=== PATIENT | female | born 1950 | race African-American/Black ===

== ENCOUNTER 2016-07-02 07:46 | Outpatient (CLI) ==
[2014-03-01 11:24] VITALS: BMI 35.4
--- NOTE | 2016-07-02 10:11 | CT ---
EXAM: CT abdomen pelvis with contrast HISTORY: Right-sided flank pain with history of hysterectomy and prior cholecystectomy and prior ob struction. COMPARISON: Abdominal ultrasound 03/08/2014 TECHNIQUE: Serial axial images of the abdomen pelvis were performed after 75 mL is of Omnipaque IV contrast was administered. These were obtained from the lung bases through the inferior pelvis. FINDINGS: The lung bases are clear. The liver is unremarkable. The gallbladder has been resected. The adrenal glands are unremarkable. The kidneys are unremarkable. The spleen is normal. The pancreas is unremarkable. The stomach i s nondistended. Small bowel in the abdomen pelvis are unremarkable. The colon demonstrates scattered diverticulosis . There are no changes of appendicitis. The urinary bladder is distended. There is moderate ather osclerotic disease. There has been a hysterectomy. There is no free air or free fluid. There are no pathologically enlarged lymph nodes. The osseous structures demonstrate scattered degenerative di sease. IMPRESSION: 1. No obstructive uropathy, renal stone or acute abnormality to account for patient's right-sided f lank pain. 2. Changes consistent with prior cholecystectomy and hysterectomy. 3. Mild atherosclerotic disease and scattered degenerative disease of the spine.
== END 2016-07-02 07:47 | disposition home or self-care (01) ==
LOC: RAD 07:46
PROVIDERS: ATTEND Internal Medicine
DX: R10.9 Unspecified abdominal pain (principal)

== ENCOUNTER 2017-05-10 07:20 | Day surgery (SDC) ==
[2014-03-01 11:24] VITALS: BMI 35.4
[2017-05-10] MEDS ORDERED: LIDOCAINE 1% 20 ML MDV ID STA (07:51)
[2017-05-10] MEDS ORDERED: LIDOCAINE HCL 2% LUER-JET ONE (09:45)
[2017-05-10] MEDS ORDERED: VERSED ONE (09:45)
[2017-05-10] MEDS ORDERED: DIPRIVAN 20 ML VIAL IVP ONE (09:45)
[2017-05-10 14:12] VITALS: BP 163/87; TEMP 97.7
--- NOTE | 2017-05-11 08:05 | OP ---
INDICATIONS FOR PROCEDURE: 67 year old female presents for endoscopy and colonoscopy exam. She has been having intermittent left sided abdominal discomfort. She points to her left upper quadrant and left lower quadrant discomfort. She has occasional bright red blood from rectum and she also has intermittent dysphasia to solids. MEDICATIONS: SEE ANESTHESIA NOTES. PROCEDURE: ENDOSCOPY, UZAIR BIOPSY, ESOPHAGEAL BIOPSY and SLOVENIAN DILATATION COLONOSCOPY, SNARE POLYPECTOMY REPORT: The risks, benefits, alternatives and limitations were discussed in detail with the patient. Informed consent was obtained. After adequate sedation was achieved, the video endoscope was introduced in the posterior pharynx and esophagus under direct vision and easily advanced down to the second portion of the duodenum. I then slowly withdrew in circumferential manner and examined with mucosa quite careful. The duodenal mucosa appeared unremarkable as did the duodenal bulb. I did see the Ampulla of Vater and it appeared normal and bile noted to be flowing from it. The antrum body is relatively unremarkably. Two biopsies from the antrum and one from body obtained for H.Pylori testing. The scope was retroflexed to look at the cardia and fundus which was unremarkable. The scope was anteflexed and withdrawn back through the esophagus, the GE junction there was a stricturing causing mild lumen narrowing. I biopsied this for histological review. The esophagus was otherwise unremarkable. I advised the scope back down the gastric lumen and I placed the guidewire, I withdrew the scope. Over the guidewire I easily advanced a 54 Vietnamese Martiniquais Dilator. The patient tolerated the procedure well with stable vital signs and pulse oximetry throughout. The patient's bed was turned and a digital rectal exam revealed good tone, no masses. The colonoscope was introduced into the rectum and advanced under direct visual guidance to the cecum. The cecum was identified by the appendiceal orifice and IC valve. At that cecum there was a diminutive polyp about 3mm size. This was destroyed using hot snare technique. I then slowly withdrew the scope in circumferential manner and examined the mucosa quite carefully. I looked on the proximal and distal sides of folds and flexures as best as possible. I was able to retroflex the scope in the right colon and left colon to increase visualization. In the ascending colon there is 5 polyps ranging in size from 4mm to 7mm all semi-sessile and I removed these by snare technique. In the proximal transverse there were two polyps about 4 and 6 mm in size and I removed these two by snare technique. The small one was destroyed using the snare. No other abnormalities were noted in the colon area other than diverticulosis. In the right colon there was scattered small mouth diverticuli throughout. In the left colon with a moderate amount of small and large mouth diverticuli scattered throughout. On retroflex view of the anal canal appeared unremarkably. The prep was good. The withdraw time was 11 minutes and 15 seconds. The patient tolerated the procedure well with stable vital signs and pulse oximetry throughout. IMPRESSION: 1. Distal esophageal stricture dilated as above 2. Otherwise normal endoscopy exam including the Ampulla of Vater. 3. 8 Colon polyps removed 4. Pancolonic diverticulosis RECOMMENDATIONS: 1. Reflux precautions 2. Advised her to make sure she cuts and chews her food well 3. High fiber diet 4. Await colon polyp pathology to confirm benign nature 5. Await esophageal biopsy to confirm benign nature 6. Recommend repeat colonoscopy examination again in 3 years or sooner if signs and symptoms would indicate otherwise 7. We will see her back in the office as needed. CC: Dr. Alirio POST
== END 2017-05-10 11:25 | disposition home or self-care (01) ==
LOC: SURG 07:20
PROVIDERS: ATTEND Internal Medicine Gastroenterology
DX: R10.12 Left upper quadrant pain (principal); R10.32 Left lower quadrant pain; K62.5 Hemorrhage of anus and rectum; K22.2 Esophageal obstruction; D12.2 Benign neoplasm of ascending colon; D12.3 Benign neoplasm of transverse colon; K63.5 Polyp of colon; D13.0 Benign neoplasm of esophagus; K57.30 Diverticulosis of large intestine without perforation or abscess without bleeding
CPT/HCPCS: 87339

== ENCOUNTER 2017-06-03 07:57 | Outpatient (CLI) ==
[2014-03-01 11:24] VITALS: BMI 35.4
--- NOTE | 2017-06-03 12:03 | MAMMO ---
EXAM: Bilateral digital screening mammogram (2-D and 3-D) History: Screening Comparison: Bilateral mammogram 02/06/2016 Findings: MLO and CC views of bilateral breasts demonstrate scattered fibroglandular breast parenchy ma. CAD was reviewed by the radiologist. Tomosynthesis was performed. Stable benign bilateral jun st calcifications. There are no dominant masses, no suspicious microcalcifications and no architectu ral distortions Impression: Benign stable mammogram. Recommend followup routine screening mammography in 1 year. BIRADS 2
== END 2017-06-03 07:58 | disposition home or self-care (01) ==
LOC: RAD 07:57
PROVIDERS: ATTEND Internal Medicine
DX: Z12.31 Encounter for screening mammogram for malignant neoplasm of breast (principal)
CPT/HCPCS: 77067

== ENCOUNTER 2018-03-03 10:36 | Outpatient (CLI) ==
[2014-03-01 11:24] VITALS: BMI 35.4
--- NOTE | 2018-03-03 11:29 | DI ---
EXAM: Two views of the chest. History: Short of breath, bronchial asthma Comparison: Chest radiograph 03/01/2014 Findings: Heart size is normal. No focal consolidation. No appreciable pleural fluid and no pneumo thorax. No acute osseous abnormalities. Prominent anterior osteophytes within the thoracic spine. Impression: No acute cardiopulmonary process
== END 2018-03-03 10:37 | disposition home or self-care (01) ==
LOC: RAD 10:36
PROVIDERS: ATTEND Internal Medicine
DX: R06.02 Shortness of breath (principal); J45.909 Unspecified asthma, uncomplicated

== ENCOUNTER 2018-03-08 06:46 | Outpatient (CLI) ==
[2014-03-01 11:24] VITALS: BMI 35.4
--- NOTE | 2018-03-08 09:53 | STECHOSEST ---
Date of Test: 03/08/18 Ordering Physician: DR. JONATHAN RUSSELL Occupation: RETIRED Reason for Exam: SOB, BORDERLINE ISCHEMIA BY STRESS TEST, CHEST PAIN Height: 69" Weight: 240 LBS Current Medications: OMEPRAZOLE, HCTZ, PROVENTIL, PRAVASTATIN, LOSARTAN, FLONASE Resting EKG: SINUS RHYTHM/ NO ACUTE CHANGES Target Heart Rate: 130/153 S-T SEGMENT STAGE MPH/GRADE HEART RATE BPM BLOOD PRESSURE mmhg RHYTHM +/- ELEVATION DEPRESSION SYMPTOMS At Rest 60 BPM 128/60 MMHG SR X NONE 1 1.7/10% 125 BPM 142/70 MMHG SR X NONE 2 2.5/12% 3 3.4/14% 4 4.2/16% 5 5.0/18% Immediately after 144 BPM 120/78 MMHG SR X SHORT OF BREATH Minutes Post Exercise 5:00 65 BPM 118/68 MMHG SR X NONE Minutes Post Exercise Total Time: 4:19 Maximum Heart Rate Reached: 144 BPM Reason for Termination: SHORT OF BREATH 97% Oxygen saturation on room air with exercises Mets 7.[address]-T WAVE CHANGES FOR ISCHEMIA 2. NO CHEST PAIN OR DISCOMFORT 3. BLOOD PRESSURE RESPONSE ADEQUATE 4. NO ARRHYTHMIAS NORMAL LEFT VENTRICULAR CONTRACTILITY--RESTING AND POST EXERCISE SESTAMIBI TO FOLLOW MTDD
--- NOTE | 2018-03-08 11:48 | NM ---
Cardiac Stress Test HISTORY: Shortness of breath. COMPARISON: None of this type. TECHNIQUE: Resting: The patient was injected with 3.5 mCi of thallium 201 chloride intravenously after which a "resting" SPECT study of the heart was performed. Stress: The patient was stressed using a Joseph protocol and at the appropriate time injected with 24 .3 mCi of 99m technetium Sestamibi (Cardiolite) after which a "stress" SPECT study of the heart was p erformed. Gated images of the heart were also obtained to assess wall motion and calculate ejection fraction. For details of the stress protocol employed, reference is made to the separate report of t performing physician. FINDINGS: The stress perfusion images demonstrate a generally uniform distribution of activity in th e left ventricular myocardium. Note that the resting images are influenced by underlying bowel activ ity. The resting perfusion images demonstrate no evidence of significant redistribution/ischemia. The left ventricular ejection fraction (LVEF) is 60 %. The left ventricular wall motion is within normal limits. IMPRESSION: 1. Left ventricular myocardial perfusion is within normal limits. 2. The left ventricular ejection fraction (LVEF) is 60 %. 3. The left ventricular wall motion is within normal limits.
--- NOTE | 2018-03-10 10:13 | ECHOSTRESS ---
Date of Exam: 03/08/18 Ordering Physician: DR. JONATHAN RUSSELL Reason for Echo: SOB, STRESS TEST--BORDERLINE ISCHEMIA M-Mode Normal Adult Results LV Dimensions Normal Adult Results AoV Opening excursions >1.6 LVEDD-base- 3.5-5.8 Ao root dimensions 2.0-3.7 LVESD-base- 3.1-4.6 L. Atrium dimensions 1.9-3.8 Post. Wall thickness 0.8-1.1 IV septum (thickness) 0.7-1.2 Post. Wall excursion 0.72-1.3 Septal motion Systolic motion R. Ventricular cavity 1.5-2.0 LVEF 60% Paradoxical septal wall motion 2-D: NORMAL LEFT VENTRICULAR CONTRACTILITY--RESTING AND POST EXERCISE M-MODE: MV: AV: TV: PV: CHAMBER SIZE: WALL MOTION: NORMAL LEFT VENTRICULAR CONTRACTILITY--RESTING AND POST EXERCISE PERICARDIUM: INTERPRETATION: 1. NORMAL LEFT VENTRICULAR CONTRACTILITY--RESTING AND POST EXERCISE MTDD
== END 2018-03-08 06:47 | disposition home or self-care (01) ==
LOC: CAR 06:46
PROVIDERS: ATTEND Internal Medicine
DX: R06.02 Shortness of breath (principal)

== ENCOUNTER 2021-10-06 05:49 | Observation (INO) ==
--- NOTE | 2021-10-06 06:34 | ED.PDOC ---
General <CHAS CHAVARRIA MD - Last Filed: 10/06/21 06:56> ED Provider: Dr. CHAS CHAVARRIA MD Chief Complaint: Chest Pain Stated Complaint: Patient presents with intermittent episodes of mid chest pain. The episodes are described as a pressure type sensation and sometimes they feel like a tingling type sensation. They may last minutes up to hours. She denies associated dyspnea, palpitations, syncope, nausea, lightheadedness or diaphoresis. She has recently noted exercise intolerance and has had some peripheral edema. Time Seen by Provider: 10/06/21 06:34 Mode of Arrival: Walk-In Information Source: Patient Primary Care Provider: JONATHAN AMEZQUITA Nursing and Triage Documentation Reviewed and Agree: Yes Does patient meet sepsis criteria?: No System Inflammatory Response Syndrome: Not Applicable Sepsis Protocol: For patient's 13 years and over: Temp is 96.8 and below OR 101 and greater Pulse >90 BPM Resp >20/minute Acutely Altered Mental Status Are patient's symptoms suggestive of a new infection, such as: -Pneumonia -Skin, Soft Tissue -Endocarditis -UTI -Bone, Joint Infection -Implantable Device -Acute Abdominal Infection -Wound Infection -Meningitis -Blood Stream Catheter Infection -Unknown Cardiovascular Complaint Exam <CHAS CHAVARRIA MD - Last Filed: 10/06/21 06:56> Chest Pain Complaint/Exam Onset: Sudden Duration: episodes for a few months Symptoms Are: Resolved Timing: Intermittent Length of Chest Pain Episodes: minutes up to a few hours Initial Severity: Mild Current Severity: Moderate Location: Reports Midsternal Pain Radiates: Reports None Character: Reports Pressure Aggravating: Reports Exertion Alleviating: Reports None Associated Signs and Symptoms: Reports Short of air; Denies Diaphoresis, Nausea, Vomiting, Fever, Palpitations, Cough, Hemoptysis, Back pain, Abdominal pain, Dizziness, Calf pain or Calf swelling Related History: Reports Similar episode Related Surgical History: Reports None History of Healthcare-Acquired Pneumonia: Reports No AMI/ACS Risk Factors: Reports Obesity, Hypertension and Dyslipidemia Pulmonary Embolism Risk Factors: Reports None Prior Care for this Complaint: No Recent Stress Test: No Recent Echo/LV Function: No JVD Present: No Subcutaneous Emphysema Present: No Diminshed Breath Sounds: No Reproducible Chest Wall Pain: No Bilateral Pulses Present: Yes Unequal Pulses Noted: No Review of Systems <CHAS CHAVARRIA MD - Last Filed: 10/06/21 06:56> Review Of Systems Constitutional: Reports No symptoms Eyes: Reports No symptoms Ears, Nose, Mouth, Throat: Reports No symptoms Respiratory: Reports Short of air Cardiac: Reports Chest pain and Edema GI: Reports No symptoms : Reports No symptoms Musculoskeletal: Reports No symptoms Skin: Reports No symptoms Neurological: Reports No symptoms Endocrine: Reports No symptoms Hematologic/Lymphatic: Reports No symptoms All Other Systems: Reviewed and Negative PFSH <CHAS CHAVARRIA MD - Last Filed: 10/06/21 06:56> Medical History Hypertension Menopause present Social History Smoking and tobacco status: Never smoker Surgical History History of gastrointestinal surgery Status post hysterectomy Female Reproductive History Menstrual Hx Hysterectomy: No Hx Tubal Ligation: No Physical Exam <CHAS CHAVARRIA MD - Last Filed: 10/06/21 06:56> Physical Exam Appearance: Reports Well-appearing, No pain distress, Well-nourished, Obese and Other (Anxious) Ill-appearing: None Pain Distress: None Eyes: Reports Not Examined ENT: Reports Not Examined Neck: Supple Respiratory: Reports Airway patent, Breath sounds clear, Breath sounds equal and Other (Chest wall nontender.) Cardiovascular: Reports RRR, No rub and No murmur GI/: Reports Soft, Nontender, No masses and Bowel sounds normal Musculoskeletal: Reports Normal strength, ROM intact and No edema Skin: Reports Warm, Dry and Normal color Neurological: Reports Sensation intact, Motor intact, Alert and Oriented Psychiatric: Reports Affect appropriate, Mood appropriate and Anxious Interpretation <CHAS CHAVARRIA MD - Last Filed: 10/06/21 06:56> EKG Interpretation Time of EKG #1: 06:06 Rate: Normal (66bpm) Rhythm: Sinus Ectopy: None [place]: NL ST Segment: Normal Interpretation: normal sinus rhythm;normal EKG <DIXON PLUMMER MD - Last Filed: 10/06/21 09:48> Radiology Interpretation Radiology Interpretation By: Radiologist Radiology Results: No acute changes Exam Interpreted: CXR <DIXON PLUMMER MD - Last Filed: 10/06/21 09:48> Critical Care Note Total Critical Care Time (mins): 0 Course <CHAS CHAVARRIA MD - Last Filed: 10/06/21 06:56> Course Hematology/Chemistry: 10/06/21 06:30 10/06/21 06:30 Orders, Labs, Meds: Lab Review 10/06/21 10/06/21 10/06/21 06:30 06:30 07:35 WBC 8.07 RBC 4.01 L Hgb 11.2 L Hct 31.4 L MCV 78.3 L MCH 27.9 MCHC 35.7 H RDW Coeff of Michael 13.9 Plt Count 315 Immature Gran % (Auto) 0.2 Neut % (Auto) 60.7 Lymph % (Auto) 28.1 [place] % (Auto) 7.4 Eos % (Auto) 3.1 Baso % (Auto) 0.5 Neut # (Auto) 4.9 Lymph # (Auto) 2.3 [place] # (Auto) 0.6 Eos # (Auto) 0.3 Baso # (Auto) 0.0 Immature Gran # (Auto) 0.0 Sodium 139.1 Potassium 3.53 Chloride 101.4 Carbon Dioxide 30.5 H Anion Gap 10.73 BUN 14.2 Creatinine 0.75 Estimated GFR (MDRD) 92.00 BUN/Creatinine Ratio 18.93 Glucose 123.1 H Calcium 9.28 Total Bilirubin 0.26 AST 24.5 ALT 26.4 Alkaline Phosphatase 95.2 Total Creatine Kinase 75.7 Troponin I < 0.012 NT-Pro-B Natriuret Pep Total Protein 7.36 Albumin 3.99 Globulin 3.37 Albumin/Globulin Ratio 1.18 SARS CoV-2 RNA Rapid PAT Negative 10/06/21 09:10 WBC RBC Hgb Hct MCV MCH MCHC RDW Coeff of Michael Plt Count Immature Gran % (Auto) Neut % (Auto) Lymph % (Auto) [place] % (Auto) Eos % (Auto) Baso % (Auto) Neut # (Auto) Lymph # (Auto) [place] # (Auto) Eos # (Auto) Baso # (Auto) Immature Gran # (Auto) Sodium Potassium Chloride Carbon Dioxide Anion Gap BUN Creatinine Estimated GFR (MDRD) BUN/Creatinine Ratio Glucose Calcium Total Bilirubin AST ALT Alkaline Phosphatase Total Creatine Kinase Troponin I < 0.012 NT-Pro-B Natriuret Pep 77.400 Total Protein Albumin Globulin Albumin/Globulin Ratio SARS CoV-2 RNA Rapid PAT Orders Category Date Time Status EKG-(ED ONLY) Stat CARDIO 10/06/21 06:26 Completed Saline Lock [ED IV/MEDIPORT/POWERPORT] .ONCE EMERGENCY 10/06/21 06:58 Active BNP [NT-PROBNP] Stat LAB 10/06/21 09:10 Completed CBC W/ AUTO DIFF Stat LAB 10/06/21 06:30 Completed COMPREHENSIVE METABOLIC PANEL Stat LAB 10/06/21 06:30 Completed CREATINE KINASE Stat LAB 10/06/21 06:30 Completed SARS COV-2 RNA RAPID PAT Stat LAB 10/06/21 07:35 Completed TROPONIN I Stat LAB 10/06/21 06:30 Completed TROPONIN I Stat LAB 10/06/21 09:10 Completed 0.9 % Sodium Chloride [Saline Flush] MEDS 10/06/21 06:58 Active 1 syr IVF PRN PRN Aspirin [Aspirin Chewable] MEDS 10/06/21 07:14 Discontinued 324 mg PO ONCE STA CHEST, 1V AP ONLY Stat RADS 10/06/21 06:26 Completed Medications Generic Name Dose Route Start Last Admin Trade Name Freq PRN Reason Stop Dose Admin Sodium Chloride 1 syr 10/06/21 06:58 0.9% Sodium Chloride 10 Ml Disp.Syrin IVF PRN PRN To flush IV Discontinued Medications Generic Name Dose Route Start Last Admin Trade Name Freq PRN Reason Stop Dose Admin Aspirin 324 mg 10/06/21 07:14 10/06/21 07:22 Aspirin 81 Mg Tab.Chew PO 10/06/21 07:15 324 mg ONCE STA Administration Vital Signs: Temp Pulse Resp BP Pulse Ox 10/06/21 05:53 97.7 F 68 20 148/90 H 98 <DIXON PLUMMER MD - Last Filed: 10/06/21 09:48> Course Orders, Labs, Meds: Lab Review 10/06/21 10/06/21 10/06/21 06:30 06:30 07:35 WBC 8.07 RBC 4.01 L Hgb 11.2 L Hct 31.4 L MCV 78.3 L MCH 27.9 MCHC 35.7 H RDW Coeff of Michael 13.9 Plt Count 315 Immature Gran % (Auto) 0.2 Neut % (Auto) 60.7 Lymph % (Auto) 28.1 [place] % (Auto) 7.4 Eos % (Auto) 3.1 Baso % (Auto) 0.5 Neut # (Auto) 4.9 Lymph # (Auto) 2.3 [place] # (Auto) 0.6 Eos # (Auto) 0.3 Baso # (Auto) 0.0 Immature Gran # (Auto) 0.0 Sodium 139.1 Potassium 3.53 Chloride 101.4 Carbon Dioxide 30.5 H Anion Gap 10.73 BUN 14.2 Creatinine 0.75 Estimated GFR (MDRD) 92.00 BUN/Creatinine Ratio 18.93 Glucose 123.1 H Calcium 9.28 Total Bilirubin 0.26 AST 24.5 ALT 26.4 Alkaline Phosphatase 95.2 Total Creatine Kinase 75.7 Troponin I < 0.012 NT-Pro-B Natriuret Pep Total Protein 7.36 Albumin 3.99 Globulin 3.37 Albumin/Globulin Ratio 1.18 SARS CoV-2 RNA Rapid PAT Negative 10/06/21 09:10 WBC RBC Hgb Hct MCV MCH MCHC RDW Coeff of Michael Plt Count Immature Gran % (Auto) Neut % (Auto) Lymph % (Auto) [place] % (Auto) Eos % (Auto) Baso % (Auto) Neut # (Auto) Lymph # (Auto) [place] # (Auto) Eos # (Auto) Baso # (Auto) Immature Gran # (Auto) Sodium Potassium Chloride Carbon Dioxide Anion Gap BUN Creatinine Estimated GFR (MDRD) BUN/Creatinine Ratio Glucose Calcium Total Bilirubin AST ALT Alkaline Phosphatase Total Creatine Kinase Troponin I < 0.012 NT-Pro-B Natriuret Pep 77.400 Total Protein Albumin Globulin Albumin/Globulin Ratio SARS CoV-2 RNA Rapid PAT Orders Category Date Time Status EKG-(ED ONLY) Stat CARDIO 10/06/21 06:26 Completed Saline Lock [ED IV/MEDIPORT/POWERPORT] .ONCE EMERGENCY 10/06/21 06:58 Active BNP [NT-PROBNP] Stat LAB 10/06/21 09:10 Completed CBC W/ AUTO DIFF Stat LAB 10/06/21 06:30 Completed COMPREHENSIVE METABOLIC PANEL Stat LAB 10/06/21 06:30 Completed CREATINE KINASE Stat LAB 10/06/21 06:30 Completed SARS COV-2 RNA RAPID PAT Stat LAB 10/06/21 07:35 Completed TROPONIN I Stat LAB 10/06/21 06:30 Completed TROPONIN I Stat LAB 10/06/21 09:10 Completed 0.9 % Sodium Chloride [Saline Flush] MEDS 10/06/21 06:58 Active 1 syr IVF PRN PRN Aspirin [Aspirin Chewable] MEDS 10/06/21 07:14 Discontinued 324 mg PO ONCE STA CHEST, 1V AP ONLY Stat RADS 10/06/21 06:26 Completed Medications Generic Name Dose Route Start Last Admin Trade Name Freq PRN Reason Stop Dose Admin Sodium Chloride 1 syr 10/06/21 06:58 0.9% Sodium Chloride 10 Ml Disp.Syrin IVF PRN PRN To flush IV Discontinued Medications Generic Name Dose Route Start Last Admin Trade Name Freq PRN Reason Stop Dose Admin Aspirin 324 mg 10/06/21 07:14 10/06/21 07:22 Aspirin 81 Mg Tab.Chew PO 10/06/21 07:15 324 mg ONCE STA Administration Vital Signs: Temp Pulse Resp BP Pulse Ox 10/06/21 05:53 97.7 F 68 20 148/90 H 98 ADRIANA Risk Score <CHAS CHAVARRIA MD - Last Filed: 10/06/21 06:56> ADRIANA Risk Score: Risk Score Odds of by 30D 0 0.1 (0.1-0.2) 1 0.3 (0.2-0.3) 2 0.4 (0.3-0.5) 3 0.7 (0.6-0.9) 4 1.2 (1.0-1.5) 5 2.2 (1.9-2.6) 6 3.0 (2.5-3.6) 7 4.8 (3.8-6.1) Discharge Plan Discharge Patient Disposition: ADMITTED INPATIENT Discharge Problem: Chest pain Prescriptions: No Action hydrochlorothiazide 25 MG tablet 25 mg PO DAILY omeprazole 20 MG capsule,delayed release(DR/EC) 20 mg PO DAILY Qty: 60 pravastatin 20 mg Tablet 20 mg PO BEDTIME losartan 100 mg Tablet 100 mg PO DAILY loratadine [Claritin] 10 mg Tablet 10 mg PO DAILY PRN (Reason: ALLERGIES) diphenhydramine HCl [Unisom SleepGels] 50 mg Capsule 50 mg PO BEDTIME PRN (Reason: Sleep) lorazepam 1 mg tablet 0.5 - 1 mg PO BEDTIME PRN (Reason: Sleep) Label Comments: TAKE 1/2 TO 1 TABLET BY MOUTH EVERY NIGHT AT BEDTIME melatonin 10 mg Tablet 10 mg PO BEDTIME PRN (Reason: Sleep) Did you review [place] CURTAIN FITTER?: No ED Provider: PLUMMER,DIXON Condition: Stable <CHAS CHAVARRIA MD - Last Filed: 10/06/21 06:56> Physician Progress Note: [] <DIXON PLUMMER MD - Last Filed: 10/06/21 09:48> Physician Progress Note: []admit d/w Dr Amezquita
[2021-10-06 06:37] LABS: BASOPHILS % (AUTO) 0.5 % (0.0-3.0); EOSINOPHILS # (AUTO) 0.3 K/ul (0.0-0.7); EOSINOPHILS % (AUTO) 3.1 % (0.0-7.0); HEMATOCRIT 31.4 % (37.0-47.0); HEMOGLOBIN 11.2 g/dl (12.0-16.0); IMMATURE GRANULOCYTE % (AUTO) 0.2 % (0.0-5.0); LYMPHOCYTES # (AUTO) 2.3 K/uL (0.60-3.4); LYMPHOCYTES % (AUTO) 28.1 (10.0-50.0); MEAN CORPUSCULAR HEMOGLOBIN 27.9 pg (27.0-31.0); MEAN CORPUSCULAR HGB CONC 35.7 (31.8-35.4); MEAN CORPUSCULAR VOLUME 78.3 fl (81.0-99.0); MONOCYTES # (AUTO) 0.6 K/uL (0.4-2.0); MONOCYTES % (AUTO) 7.4 (0-10); NEUTROPHILS # (AUTO) 4.9 K/ul (2.0-6.9); NEUTROPHILS % (AUTO) 60.7 % (42.2-75.2); PLATELET COUNT 315 10^3/uL (140-440); RDW COEFFICIENT OF VARIATION 13.9 % (11.6-14.8); RED BLOOD COUNT 4.01 10^6/ul (4.20-5.40); WHITE BLOOD COUNT 8.07 K/ul (4.6-10.2)
[2021-10-06 06:48] LABS: ALANINE AMINOTRANSFERASE 26.4 U/L (0-35); ALBUMIN 3.99 g/dL (3.5-5.0); ALKALINE PHOSPHATASE 95.2 U/L (53-141); ASPARTATE AMINO TRANSFERASE 24.5 U/L (14-36); BILIRUBIN,TOTAL 0.26 mg/dL (0.2-1.3); BLOOD UREA NITROGEN 14.2 mg/dL (7-17); CALCIUM 9.28 mg/dL (8.4-10.2); CARBON DIOXIDE 30.5 mmol/L (22-30.0); CHLORIDE 101.4 mmol/L (98-107); CREATINE KINASE 75.7 U/L (30-135); CREATININE 0.75 mg/dL (0.60-1.30); GLUCOSE 123.1 mg/dL (74-106); POTASSIUM 3.53 mmol/L (3.5-5.1); SODIUM 139.1 mmol/L (134.5-145); TOTAL PROTEIN 7.36 g/dL (6.3-8.2)
[2021-10-06 07:04] LABS: TROPONIN I < 0.012 ng/ml (0.0000-0.120)
[2021-10-06] MEDS ORDERED: ASPIRIN CHEWABLE PO STA (07:14)
--- NOTE | 2021-10-06 07:27 | DI ---
EXAM: Single, AP chest. HISTORY: Chest pain COMPARISON: 06/01/2021. TECHNIQUE: Single, portable AP view(s) of the chest. FINDINGS: Lungs: The lung volumes are normal. The lungs are clear without consolidation or effusion. There is no pneumothorax. Cardiovascular: The heart is normal. The pulmonary vasculature is within normal limits. The aorta is unremarkable. Olga/Mediastinum: Normal. Osseous structures: Normal for age. IMPRESSION: Negative chest
[2021-10-06 09:44] LABS: TROPONIN I < 0.012 ng/ml (0.0000-0.120)
[2021-10-06] MEDS ORDERED: TYLENOL PO PRN (09:48)
[2021-10-06] MEDS ORDERED: CLARITIN PO PRN (09:50)
[2021-10-06] MEDS ORDERED: BENADRYL PO PRN (09:50)
[2021-10-06] MEDS ORDERED: NON-FORMULARY MEDICATION (Melatonin 10 mg Tablet) PO PRN (09:50)
[2021-10-06] MEDS ORDERED: ATROPINE SULFATE PFS IVP PRN (09:53)
[2021-10-06] MEDS ORDERED: NITROSTAT SL PRN (09:53)
[2021-10-06 11:24] VITALS: BMI 36.1
[2021-10-06] MEDS ORDERED: ULTRAM PO PRN (11:38)
[2021-10-06 13:43] LABS: BILIRUBIN,URINE Negative (NEGATIVE); CLARITY,URINE Clear (CLEAR); COLOR,URINE Yellow (YELLOW); GLUCOSE, URINE (UA) Negative (NEGATIVE); KETONES,URINE Negative (NEGATIVE); LEUKOCYTE ESTERASE ,URINE Negative (NEGATIVE); NITRITE,URINE Negative (NEGATIVE); PH,URINE 6.5 (5-9); PROTEIN,URINE Negative (NEGATIVE); URINE, BLOOD Negative (NEGATIVE); UROBILINOGEN,URINE 0.2 (0.2)
[2021-10-06] MEDS: SODIUM CHLORIDE 1,000 ML IV SCH (13:58)
[2021-10-06] MEDS: PROTONIX PO SCH ×2 (13:58→17:47)
[2021-10-06 17:14] LABS: CREATINE KINASE 63.8 U/L (30-135)
[2021-10-06 17:28] LABS: TROPONIN I < 0.012 ng/ml (0.0000-0.120)
[2021-10-06] MEDS: COZAAR PO SCH (17:49)
[2021-10-06] MEDS: ATIVAN PO PRN (20:54)
[2021-10-06] MEDS ORDERED: PRAVACHOL PO SCH (21:00)
[2021-10-07] MEDS: SODIUM CHLORIDE 1,000 ML IV SCH ×2 (02:10→13:16)
[2021-10-07 04:36] LABS: BASOPHILS # (AUTO) 0.1 K/uL (0-0.2); BASOPHILS % (AUTO) 0.7 % (0.0-3.0); EOSINOPHILS # (AUTO) 0.3 K/ul (0.0-0.7); EOSINOPHILS % (AUTO) 3.7 % (0.0-7.0); HEMATOCRIT 30.2 % (37.0-47.0); HEMOGLOBIN 10.4 g/dl (12.0-16.0); IMMATURE GRANULOCYTE % (AUTO) 0.2 % (0.0-5.0); LYMPHOCYTES # (AUTO) 3.3 K/uL (0.60-3.4); LYMPHOCYTES % (AUTO) 35.9 (10.0-50.0); MEAN CORPUSCULAR HEMOGLOBIN 27.6 pg (27.0-31.0); MEAN CORPUSCULAR HGB CONC 34.4 (31.8-35.4); MEAN CORPUSCULAR VOLUME 80.1 fl (81.0-99.0); MONOCYTES # (AUTO) 0.8 K/uL (0.4-2.0); MONOCYTES % (AUTO) 8.8 (0-10); NEUTROPHILS # (AUTO) 4.6 K/ul (2.0-6.9); NEUTROPHILS % (AUTO) 50.7 % (42.2-75.2); PLATELET COUNT 327 10^3/uL (140-440); RDW COEFFICIENT OF VARIATION 14.1 % (11.6-14.8); RED BLOOD COUNT 3.77 10^6/ul (4.20-5.40); WHITE BLOOD COUNT 9.07 K/ul (4.6-10.2)
[2021-10-07 05:40] LABS: ALBUMIN 3.57 g/dL (3.5-5.0); ALKALINE PHOSPHATASE 89.8 U/L (53-141); ASPARTATE AMINO TRANSFERASE 33.9 U/L (14-36); BILIRUBIN,TOTAL 0.16 mg/dL (0.2-1.3); BLOOD UREA NITROGEN 16.6 mg/dL (7-17); CALCIUM 8.98 mg/dL (8.4-10.2); CARBON DIOXIDE 29.7 mmol/L (22-30.0); CHLORIDE 102.1 mmol/L (98-107); CREATININE 0.86 mg/dL (0.60-1.30); GLUCOSE 121.5 mg/dL (74-106); POTASSIUM 3.98 mmol/L (3.5-5.1); SODIUM 137.6 mmol/L (134.5-145); TOTAL PROTEIN 6.66 g/dL (6.3-8.2)
[2021-10-07] MEDS: PROTONIX PO SCH ×2 (05:48→17:02)
[2021-10-07] MEDS ORDERED: PRILOSEC PO SCH (06:30)
[2021-10-07] MEDS: HYDROCHLOROTHIAZIDE PO SCH (08:38)
[2021-10-07] MEDS ORDERED: PRAVACHOL PO SCH ×2 (09:00→17:00)
[2021-10-07] MEDS ORDERED: COZAAR PO SCH (09:00)
[2021-10-07] MEDS: PRAVACHOL PO SCH (09:43)
[2021-10-07] MEDS: COZAAR PO SCH (17:01)
[2021-10-07] MEDS: ATIVAN PO PRN (20:54)
[2021-10-08 05:11] VITALS: BP 116/68; TEMP 97
[2021-10-08] MEDS: PROTONIX PO SCH (05:45)
[2021-10-08 05:56] LABS: BASOPHILS # (AUTO) 0.1 K/uL (0-0.2); BASOPHILS % (AUTO) 0.6 % (0.0-3.0); EOSINOPHILS # (AUTO) 0.3 K/ul (0.0-0.7); EOSINOPHILS % (AUTO) 3.8 % (0.0-7.0); HEMATOCRIT 31.9 % (37.0-47.0); IMMATURE GRANULOCYTE % (AUTO) 0.4 % (0.0-5.0); LYMPHOCYTES # (AUTO) 2.6 K/uL (0.60-3.4); MEAN CORPUSCULAR HEMOGLOBIN 27.5 pg (27.0-31.0); MEAN CORPUSCULAR HGB CONC 34.5 (31.8-35.4); MEAN CORPUSCULAR VOLUME 79.8 fl (81.0-99.0); MONOCYTES # (AUTO) 0.7 K/uL (0.4-2.0); MONOCYTES % (AUTO) 8.4 (0-10); NEUTROPHILS # (AUTO) 4.6 K/ul (2.0-6.9); NEUTROPHILS % (AUTO) 55.8 % (42.2-75.2); PLATELET COUNT 316 10^3/uL (140-440); RDW COEFFICIENT OF VARIATION 13.8 % (11.6-14.8); WHITE BLOOD COUNT 8.23 K/ul (4.6-10.2)
[2021-10-08 06:10] LABS: ALANINE AMINOTRANSFERASE 21.4 U/L (0-35); ALBUMIN 3.87 g/dL (3.5-5.0); ALKALINE PHOSPHATASE 82.3 U/L (53-141); ASPARTATE AMINO TRANSFERASE 20.8 U/L (14-36); BILIRUBIN,TOTAL 0.28 mg/dL (0.2-1.3); BLOOD UREA NITROGEN 14.6 mg/dL (7-17); CALCIUM 9.31 mg/dL (8.4-10.2); CARBON DIOXIDE 32.5 mmol/L (22-30.0); CHLORIDE 100.8 mmol/L (98-107); CREATININE 0.84 mg/dL (0.60-1.30); GLUCOSE 117.8 mg/dL (74-106); SODIUM 138.9 mmol/L (134.5-145); TOTAL PROTEIN 7.13 g/dL (6.3-8.2)
[2021-10-08 06:14] LABS: POTASSIUM 3.79 mmol/L (3.5-5.1)
--- NOTE | 2021-10-08 08:18 | ECHO2D ---
Date of Exam: 10/07/2021 Ordering Physician: DR. JONATHAN RUSSELL Room #: [id number] Reason for Echo: CHEST PAIN, HTN, OBESITY, DYSLIPIDEMIA M-Mode Normal Adult Results LV Dimensions Normal Adult Results AoV Opening excursions >1.6 >1.6 LVEDD-base- 3.5-5.8 4.5 Ao root dimensions 2.0-3.7 3.3 LVESD-base- 3.1-4.6 L. Atrium dimensions 1.9-3.8 4.8 Post. Wall thickness 0.8-1.1 1.1 IV septum (thickness) 0.7-1.2 1.2 Post. Wall excursion 0.72-1.3 NORMAL Septal motion NORMAL Systolic motion R. Ventricular cavity 1.5-2.0 NORMAL LVEF 60% 65% Paradoxical septal wall motion NORMAL 2-D : 2-D M Mode Echocardiogram was performed using apical four chamber and left parasternal long and short axis views. Mitral, tricuspid and aortic valves appear to be normal. Contractility of the left ventricle seems to be normal, so is the cavity size. ENLARGED LEFT ATRIAL CAVITY SIZE. Aortic root appears to be normal. There is no pericardial effusion. There is no thrombus noted in the left ventricle or left atrial cavity. M-MODE: MV: NORMAL AV: NORMAL TV: NORMAL PV: CHAMBER SIZE: ENLARGED LEFT ATRIAL CAVITY WALL MOTION: NORMAL PERICARDIUM: NORMAL INTERPRETATION: 1. LEFT VENTRICLE HYPERTROPHY WITH ENLARGED LEFT ATRIAL CAVITY 2. NORMAL VALVES 3. NORMAL LEFT VENTRICLE CONTRACTILITY MTDD
--- NOTE | 2021-10-08 08:47 | STRESSMOD ---
Date of Test: 10/07/2021 Ordering Physician: DR. JONATHAN RUSSELL Occupation:RETIRED Reason for Exam: CHEST PAIN Smoking History: NONE Height: 69" Weight: 245 LBS Current Medications: PRAVASTATIN, LOSARTAN, TRAMADOL, LORAZEPAM, HCTZ Resting EKG: SINUS RHYTHM/ NO ACUTE CHANGES Target Heart Rate: 126/149 S-T SEGMENT STAGE MPH/GRADE HEART RATE BPM BLOOD PRESSURE mmhg RHYTHM +/- ELEVATION DEPRESSION SYMPTOMS At Rest 65 BPM 140/70 MMHG SR X NONE 1 1.7/0% 112 BPM 150/70 MMHG SR X NONE 2 1.7/5% 3 1.7/10% 4 2.5/12% 5 3.4/14% Immediately After 127 BPM 190/66 MMHG SR X SHORT OF AIR Minutes Post Exercise 4" 75 BPM SR X NONE Minutes Post Exercise 6" 72 BPM 138/80 MMHG SR X NONE DURATION OF EXERCISE: 5.23 MAXIMUM HEART RATE REACHED: 127 BPM REASON FOR TERMINATION: SHORT OF AIR 93% OXYGEN SATURATION WITH EXERCISE ON ROOM AIR METS 4.0 INTERPRETATION: 1. TEST NEGATIVE FOR ISCHEMIC ST-T WAVE CHANGES 2. NO CHEST PAIN OR DISCOMFORT 3. NO ARRHYTHMIAS 4. BLOOD PRESSURE RESPONSE: SYSTOLIC HYPERTENSION WITH EXERCISE NORMAL LEFT VENTRICLE CONTRACTILITY--RESTING AND POST EXERCISE MTDD
--- NOTE | 2021-10-08 08:49 | ECHOSTRESS ---
Date of Exam: 10/07/2021 Ordering Physician: DR. JONATHAN RUSSELL Reason for Echo: CHEST PAIN, STRESS TEST--NO ISCHEMIA M-Mode Normal Adult Results LV Dimensions Normal Adult Results AoV Opening excursions >1.6 LVEDD-base- 3.5-5.8 Ao root dimensions 2.0-3.7 LVESD-base- 3.1-4.6 L. Atrium dimensions 1.9-3.8 Post. Wall thickness 0.8-1.1 IV septum (thickness) 0.7-1.2 Post. Wall excursion 0.72-1.3 Septal motion Systolic motion R. Ventricular cavity 1.5-2.0 LVEF 60% Paradoxical septal wall motion 2-D: NORMAL LEFT VENTRICLE CONTRACTILITY--RESTING AND POST EXERCISE M-MODE: MV: AV: TV: PV: CHAMBER SIZE: WALL MOTION: NORMAL LEFT VENTRICLE CONTRACTILITY--RESTING AND POST EXERCISE PERICARDIUM: INTERPRETATION: 1. NORMAL LEFT VENTRICLE CONTRACTILITY--RESTING AND POST EXERCISE MTDD
[2021-10-08 08:57] LABS: RETICULOCYTE % 1.62 %; RETICULOCYTE HEMOGLOBIN 32.8
[2021-10-08] MEDS: HYDROCHLOROTHIAZIDE PO SCH (09:03)
[2021-10-08] MEDS: PRAVACHOL PO SCH (09:03)
[2021-10-08 09:07] LABS: IRON 53.1 ug/dL (37-170)
--- NOTE | 2021-10-08 09:24 | PCM.PROG ---
Attending Provider: ATTENDING PROVIDER: Dr. JONATHAN AMEZQUITA This patient is seen with Radha Giraldo, Nurse Practitioner. DATE OF SERVICE: 10/08/21 SUBJECTIVE: This 71 year old AA/BLACK F was hospitalized 10/06/21. Cardiac workup was negative. Still reports that she has some substernal pains at times feels that she can't swallow all the way down. She has a history of esophageal dilatation with Dr. Bedoya, was a few years ago we will refer her back. REVIEW OF SYSTEMS: CONSTITUTIONAL: No night sweats. No fatigue, malaise, lethargy. No fever or chills. HEENT: Eyes: No visual changes. No eye pain. No eye discharge. ENT: No runny nose. No epistaxis. No sinus pain. No odynophagia. No congestion. RESPIRATORY: No cough, no congestion. No hemoptysis. No shortness of breath. CARDIOVASCULAR: No angina symptoms. No CHF symptoms. No atypical chest pain for CAD. No palpitations. No orthopnea.. GASTROINTESTINAL: No abdominal pain. No nausea or vomiting. No diarrhea or constipation. No hematemesis. No hematochezia. Epigastric pain. GENITOURINARY: No urgency. No frequency. No dysuria. No hematuria. No obstructive symptoms. No discharge. No pain. No significant abnormal bleeding. MUSCULOSKELETAL: No musculoskeletal pain; no joint swelling. NEUROLOGICAL: Awake, alert, oriented to time, place and person. No headache. No neck pain. No syncope. No seizures. No dizziness. PSYCHIATRIC: Not anxious. No depression. No suicidal thoughts. No homicidal thoughts. Insomnia SKIN: No rash. No lesions. No wounds. ENDOCRINE: No unexplained weight loss. No weight gain. HEMATOLOGIC/LYMPHATIC: No anemia. No purpura. No petechiae. No prolonged or excessive bleeding. No palpable lymph nodes. PHYSICAL EXAMINATION: GENERAL: The patient is awake, alert and oriented, sitting in bed in no distress. VITAL SIGNS: Temperature 97.0 F, Pulse 58, Respiratory Rate 16, BP 116/68, Pulse Ox 99% HEENT: Head normocephalic, atraumatic. Eyes: Extraocular muscles are intact. Pupils are equal, round and reactive to light and accommodation. Ears: No lesions. Nose appeared normal. Throat: No exudate or erythema. NECK: Supple. No JVD, no carotid bruit. No lymphadenopathy or thyromegaly. LUNGS: Clear to auscultation. Percussion note normal. Chest symmetrical. HEART: S1, S2, no S3. No murmurs. No cyanosis or clubbing. No ascites. Pulses: Dorsalis pedis and posterior tibial pulses +1 to +2 both sides. ABDOMEN: Soft. Non-tender. Bowel sounds active. No CVA tenderness. No mass felt. EXTREMITIES: No edema. Full range of motion of all extremities, equal. NEUROLOGIC: No focal deficit. Cranial nerves II through XII are grossly intact. No headache. No double vision. SKIN: Not dry. Intact. Turgor-normal. LYMPHATIC: No palpable lymph nodes/no lymphedema. MUSCULOSKELETAL: Normal joints with no swelling. Muscle tone is normal. LAB REVIEW: 10/08/21 05:17 10/08/21 05:17 10/08/21 05:17: Sodium 138.9, Potassium 3.79, Chloride 100.8, Carbon Dioxide 32.5 H, Anion Gap 9.39, BUN 14.6, Creatinine 0.84, Estimated GFR (MDRD) 81.00, BUN/Creatinine Ratio 17.38, Glucose 117.8 H, Calcium 9.31, Total Bilirubin 0.28, AST 20.8, ALT 21.4, Alkaline Phosphatase 82.3, Total Protein 7.13, Albumin 3.87, Globulin 3.26, Albumin/Globulin Ratio 1.18 10/08/21 05:17: WBC 8.23, RBC 4.00 L, Hgb 11.0 L, Hct 31.9 L, MCV 79.8 L, MCH 27.5, MCHC 34.5, RDW Coeff of Michael 13.8, Plt Count 316, Immature Gran % (Auto) 0.4, Neut % (Auto) 55.8, Lymph % (Auto) 31.0, [place] % (Auto) 8.4, Eos % (Auto) 3.8, Baso % (Auto) 0.6, Neut # (Auto) 4.6, Lymph # (Auto) 2.6, [place] # (Auto) 0.7, Eos # (Auto) 0.3, Baso # (Auto) 0.1, Immature Gran # (Auto) 0.0 ASSESSMENT: Please see below. 1. Iron deficiency anemia 2. Atypical chest pain likely related to GERD 3. Possible esophageal narrowing 4. Insomnia 5. Dyslipidemia PLAN: 1. Discharge home 2. Anemia profile 3. Iron 325mg daily 4. Lipid 5. Continue Protonix 40mg BID daily 6. Trazodone 25mg to take at night 7. Call Shiben's office 8. Discontinue Omeprazole Plan and coordination of the patient's care discussed in the presence of Locomotive Driver and nurse. SCRIBED BY: Anabella TIDWELL scribed while in presence of service performed by Dr. Amezquita/Radha Giraldo APRN on 10/08/21 (1300)
[2021-10-08 09:52] LABS: CHOLESTEROL 199.3 mg/dL (0-200); HDL CHOLESTEROL 50.3 mg/dL (35-80); TRIGLYCERIDES 104.8 mg/dL (0-150)
--- NOTE | 2021-10-08 13:51 | PN ---
DATE OF SERVICE: 10/06/21 ADMIT NOTE SUBJECTIVE: 71 year old black female hospitalized through the emergency room with chest pain. The patient's chest pain was in the center of the chest, equivocal mostly described by the ER attending sound to be me like it was atypical but in any case the patient has risk factors like obesity with BMI of 36, sedentary lifestyle, dyslipidemia, hypertension, family history of heart disease. She woke up with the pain at 4 o'clock in the morning. Pain lasted for more than half an hour. No associated shortness of breath or sweating was noted. The patient's vitals were stable. Physical findings unremarkable according to the ER doctor. Troponin negative. EKG sinus rhythm, no changes. The patient is going to be hospitalized with chest pain to rule out AK or ischemia. She will undergo further testing very likely tomorrow. CONDITION: Stable. TIME SPENT: More than 30 minutes. Plan and coordination of the patient's care discussed in the presence of nurse. SEJAL
--- NOTE | 2021-10-08 14:12 | PN ---
DATE OF SERVICE: 10/07/21 SUBJECTIVE: 71 year old black female hospitalized with chest pain which was fairly atypical, center of the chest, Xiphoid process and the patient's pain has practically has subsided. This morning she had it for a few seconds. She says it is right where the lower end of her breast bone. REVIEW OF SYSTEMS: CONSTITUTIONAL: No night sweats. No fatigue, malaise, lethargy. No fever or chills. HEENT: Eyes: No visual changes. No eye pain. No eye discharge. ENT: No runny nose. No epistaxis. No sinus pain. No sore throat. No odynophagia. No congestion. RESPIRATORY: No cough, no congestion. No hemoptysis. No shortness of breath. CARDIOVASCULAR: No angina symptoms. No CHF symptoms. No atypical chest pain for CAD. No palpitations. No PND. No orthopnea. GASTROINTESTINAL: No abdominal pain. No nausea or vomiting. No diarrhea or constipation. No hematemesis. No hematochezia. GENITOURINARY: No urgency. No frequency. No dysuria. No hematuria. No obstructive symptoms. No discharge. No pain. No significant abnormal bleeding. MUSCULOSKELETAL: No musculoskeletal pain; no joint swelling. NEUROLOGICAL: No headache. No neck pain. No syncope. No seizures. No dizziness. PSYCHIATRIC: Not anxious. No depression. No suicidal thoughts. No homicidal thoughts. SKIN: No rash. No lesions. No wounds. ENDOCRINE: No unexplained weight loss. No weight gain. HEMATOLOGIC/LYMPHATIC: No anemia. No purpura. No petechiae. No prolonged or excessive bleeding. No palpable lymph nodes. PHYSICAL EXAMINATION: VITAL SIGNS: Temperature 98, pulse 60, respiratory rate 18, blood pressure 130/80 and pulse ox 99%. HEENT: Head normocephalic, atraumatic. Eyes: Extraocular muscles are intact. Pupils are equal, round and reactive to light and accommodation. Ears: No lesions. Nose appeared normal. Throat: No exudate or erythema. NECK: Supple. No JVD, no carotid bruit. No lymphadenopathy or thyromegaly. LUNGS: Decreased breath sounds but clear to auscultation. Percussion note normal. Chest symmetrical. HEART: S1, S2, no S3. No murmurs. No cyanosis or clubbing. No ascites. Pulses: Dorsalis pedis and posterior tibial pulses +1 to +2 bilaterally. ABDOMEN: Soft. Nontender. Bowel sounds active. No CVA tenderness. No mass felt. EXTREMITIES: No edema. Full range of motion of all extremities, equal. NEUROLOGIC: No focal deficit. Cranial nerves II through XII are grossly intact. No headache. No double vision. SKIN: Not dry. Intact. Turgor - normal. LYMPHATIC: No palpable lymph nodes/no lymphedema. MUSCULOSKELETAL: Normal joints with no swelling. Muscle tone is normal. LABS: hgb 10.4, hct 32, WBC 9,000 normal differential, creatinine 0.8, BUN 16, potassium 3.9. The patient had echo done which showed LVH with enlarged LA cavity, normal LV contractility. Stress echo was negative for ischemia. ASSESSMENT: 1. Chest pain seems to be noncardiac. Several risks for coronary artery disease like obesity with sedentary lifestyle, dyslipidemia, hypertension PLAN: 1. Condition is stable. So far no evidence of any acute findings on the EKG, cardiac markers are negative. PRO BNP normal. Likely cause of chest pain noncardiac. TIME SPENT: More than 30 minutes. Plan and coordination of the patient's care discussed in the presence of nurse. SEJAL
--- NOTE | 2021-10-09 13:57 | PN ---
DATE OF SERVICE: 10/08/21 SUBJECTIVE: 72 year old black female hospitalized with chest pain. The patient's chest pain was noncardiac. The patient's stress echo and echo practically negative with normal LV contractility,no evidence of ischemia by stress echo. The patient had esophageal stricture which was dilated. The patient likely has GERD with esophageal spasm. She is going to be set for EGD. Condition is stable. She is going to be discharged on Protonix. The patient was seen and examined with the Nurse Practitioner. TIME SPENT: More than 30 minutes. Plan and coordination of the patient's care discussed in the presence of nurse. SEJAL
--- NOTE | 2021-10-09 13:58 | PN ---
ADMISSION DAY: Level 5 REST OF THEM: Intermediate FINAL DAY: D as in discharge MTDD
--- NOTE | 2021-10-15 09:39 | HP ---
DATE OF SERVICE: 10/06/21 REASON FOR HOSPITALIZATION/HISTORY OF PRESENT ILLNESS: 71 year old female who presents to the emergency room with intermittent episodes of chest pain over the past 24 hours. She describes them as pressure sometimes tingling, they report lasting a few minutes up to an hour. She has had some radiation up to the left jaw and down her left arm. PAST MEDICAL HISTORY: Hypertension Dyslipidemia Obesity Tinnitus Severe DJD of the L4, L5 and S1. Bronchial asthma Fatty liver with elevated liver function Mild COPD History of Nephrolithiasis History of hypokalemia Insomnia Anxiety Hyperglycemia GERD PAST SURGICAL HISTORY: Right total knee replacement Left total knee replacement by Robert Amezquita 06/22 Status post cholecystectomy History of esophageal stricture with dilatation [address] Bedoya REVIEW OF SYSTEMS: CONSTITUTIONAL: No night sweats. No fatigue, malaise, lethargy. No fever or chills. HEENT: Eyes: No visual changes. No eye pain. No eye discharge. ENT: No runny nose. No epistaxis. No sinus pain. No sore throat. No odynophagia. No ear pain. No congestion. RESPIRATORY: No cough, no congestion. No hemoptysis. CARDIOVASCULAR: No angina symptoms. No CHF symptoms. Chest pain with shortness of breath. No palpitations. No PND. No orthopnea. GASTROINTESTINAL: No abdominal pain. No nausea or vomiting. No diarrhea or constipation. No hematemesis. No hematochezia. GENITOURINARY: No urgency. No frequency. No dysuria. No hematuria. No obstructive symptoms. No discharge. No pain. No significant abnormal bleeding. MUSCULOSKELETAL: No musculoskeletal pain. No joint swelling. No arthritis. NEUROLOGICAL: No headache. No neck pain. No syncope. No seizures. No dizziness. PSYCHIATRIC: Anxious. No depression. No suicidal thoughts. No homicidal thoughts. SKIN: No rash. No lesions. No wounds. ENDOCRINE: No unexplained weight loss. No weight gain. HEMATOLOGIC/LYMPHATIC: No anemia. No purpura. No petechiae. No prolonged or excessive bleeding. No palpable lymph nodes. PERSONAL/FAMILY/SOCIAL HISTORY: . Nonsmoker. No alcohol or illicit drug use. Lives by herself. Still works parts back counter man. MEDICATIONS: Hydrochlorothiazide 25mg PO daily Omeprazole 20mg PO daily Pravastatin 80mg PO daily Losartan 50mg PO 1700 Claritin 10mg PO daily PRN Melatonin 10mg PO BEDTIME PRN Unisom SleepGels 50mg PO bedtime PRN Lorazepam 0.5-1mg PO Bedtime PRN Tramadol 50mg PO BID PRN ALLERGIES: Latex Natural rubber Per[employer] Cleaning Products PHYSICAL EXAMINATION: GENERAL: The patient is , lying/sitting in bed in no distress. VITAL SIGNS: Temperature 97.7, heart rate 68, respiratory rate 20, blood pressure 148/90 and pulse ox 98% on room air. HEENT: Head normocephalic, atraumatic. Eyes: Extraocular muscles are intact. Pupils are equal, round and reactive to light and accommodation. Ears: No lesions. Nose appeared normal. Throat: No exudate or erythema. NECK: Supple. No JVD, no carotid bruit. No lymphadenopathy or thyromegaly. LUNGS: Clear to auscultation. Percussion note normal. Chest symmetrical. HEART: S1, S2, no S3. No murmur. No cyanosis or clubbing. No ascites. Pulses: Dorsalis pedis and posterior tibial pulses +1 to +2 bilaterally. ABDOMEN: Soft. Nontender. Bowel sounds active. No CVA tenderness. No mass felt. EXTREMITIES: No edema. Full range of motion of all extremities, equal. NEUROLOGIC: No focal deficit. Cranial nerves II through XII are grossly intact. No headache, no double vision or headache. SKIN: Not dry. Intact. Turgor - normal. LYMPHATIC: No palpable lymph nodes/no lymphedema. MUSCULOSKELETAL: Normal joints with no swelling. Muscle tone is normal. LABS: WBC 8.07, hgb 11.2, hct 31.4, plt count 315, sodium 139, potassium 3.5, BUN 14, creatinine 0.75, glucose 123, Co2 30.5. AST 24, ALT 26, Total creatinine kinase 75, troponin less than 0.012. Rapid COVID was negative. EKG shows normal sinus rhythm. Chest x-ray is normal. NT PRO BNP is 77. ASSESSMENT: 1. Chest pain 2. Shortness of breath 3. Hypertension 4. Dyslipidemia 5. Obesity 6. Hyperglycemia 7. Metabolic syndrome PLAN: 1. We will admit 2. Routine telemetry orders 3. CBC and CMP daily 4. Serial cardiac enzymes 5. Serial EKGs 6. Vasotec 1.25mg IV Q 6 hours PRN for systolic greater than 160 7. U/A 8. Continue Home Medications 9. Regular diet 10.Oxygen at 1-2 liters as needed 11. We will follow closely TIME SPENT: More than 70 minutes. MTDD
--- NOTE | 2021-10-15 09:55 | DS ---
DATE OF SERVICE: 10/08/21 FINAL DIAGNOSIS: 1. Atypical chest pain 2. GERD history of esophageal stricture with dilatation by Dr. Bedoya in March of 2020 3. Hypertension 4. Hyperglycemia 5. Obesity 6. Dyslipidemia DISCHARGE INSTRUCTIONS: Discharge home today. Followup appointment with Dr. Amezquita/Radha Giraldo NP/Kee Mccormack NP on TuesdayOctober 12 at 8:30am. Appointment with Dr. Bedoya TuesdayOctober 14 at 9:45. MEDICATIONS AT DISCHARGE: Hydrochlorothiazide 25mg PO daily Pravastatin 80mg PO daily Losartan 50mg PO 1700 Claritin 10mg PO daily PRN Melatonin 10mg PO BEDTIME PRN Unisom SleepGels 50mg PO bedtime PRN Lorazepam 0.5-1mg PO Bedtime PRN Tramadol 50mg PO BID PRN NEW PRESCRIPTIONS: Protonix 40mg take one tablet twice daily Ferrous sulfate 325mg take one tablet daily Trazodone 25mg take one tablet at bedtime to help with insomnia. It is ok to continue taking Melatonin DISCONTINUED MEDICATIONS: Omeprazole DIET INSTRUCTIONS: Regular diet with small frequent meals. Remain upright after eating meals for at least 30 minutes. ACTIVITY: As tolerated with rest periods. HOSPITAL COURSE: This is a 71 year old female with history of hypertension, dyslipidemia, obesity, hypoglycemia and metabolic syndrome who presented to the emergency room complaining of chest pain radiating to her chest and down her left arm. She had noticed this with some exertion after she had been working at home. The pain had some and gone over the past 24 hours. She was admitted. Serial cardiac enzymes were negative. EKG showed normal sinus rhythm. She was placed on Routine telemetry orders. 2D echo was done. Blood pressure was elevated at on admission at 148/90. 2D echo showed an enlarged left atrial cavity at 4.8cm, LVH, valves are normal Ejection fraction was 65%. Dr. Amezquita performed a stress test which showed normal left ventricle contractility. No chest pain during or after exercise. It was negative for ischemic changes. She was anemic on admission with hgb of 10.4, anemia profile was done which showed iron deficiency anemia. 24 hours after admission the patient was started on Protonix 40mg BID and discontinued her Omeprazole. We did start her on Iron 325mg PO daily. She did seem to have resolution of symptoms after the initiation of the Protonix twice daily. Again she had had a history of esophageal stricture. She still reported some feeling of discomfort in the center of the chest more epigastric rather than left sided. It found after cardiac tests were negative that was atypical noncardiac chest pain. We have referred her back to Dr. Bedyoa. She is supposed to have an appointment next week. She will continue the iron and continue the Protonix and we will followup with her in the office. TIME SPENT: More than 60 minutes. SEJAL
== END 2021-10-08 10:20 | disposition home or self-care (01) ==
LOC: ED 05:49 → INTOOBSV 10:27 → MEDSURG A 10:27
PROVIDERS: ADMIT Internal Medicine; ATTEND Internal Medicine
DX: K21.9 Gastro-esophageal reflux disease without esophagitis; D50.9 Iron deficiency anemia, unspecified; Z72.3 Lack of physical exercise; G47.00 Insomnia, unspecified; R73.9 Hyperglycemia, unspecified; Z51.81 Encounter for therapeutic drug level monitoring; I10 Essential (primary) hypertension; E66.9 Obesity, unspecified; R07.9 Chest pain, unspecified; Z68.36 Body mass index [BMI] 36.0-36.9, adult; Z79.899 Other long term (current) drug therapy; R06.02 Shortness of breath; R07.89 Other chest pain; E88.81 Metabolic syndrome and other insulin resistance; E78.5 Hyperlipidemia, unspecified